=== PATIENT | male | born 1965 | race American Indian/Alaskan Native ===

== ENCOUNTER 2020-05-19 08:30 | Day surgery (SDC) | payer BC, OTHER ==
[~2020-05-19 08:30] MED LIST: SODIUM CHLORIDE 0.9% 1000 ML 1,000 ML IV SCH
--- NOTE | 2020-05-19 09:38 | Anesthesia Day of Surgery ---
Anesthesia Day of Surgery - Day of Surgery Patient Examined: Yes Patient H&P Reviewed: Yes Patient is NPO: Yes
--- NOTE | 2020-05-19 09:40 | Anesthesia Consultation ---
Anesthesia Consult and Med Hx Date of service: 05/19/20 - Airway Anesthetic Teeth Evaluation: Chipped ROM Head & Neck: Adequate Mental/Hyoid Distance: Adequate Mallampati Class: Class II Intubation Access Assessment: Good - Pre-Operative Health Status ASA Pre-Surgery Classification: ASA3 Proposed Anesthetic Plan: MAC - Pulmonary Hx Asthma: Yes Hx Sleep Apnea: Yes - Cardiovascular System Hx Hypertension: Yes - Endocrine Hx Renal Disease: No Hx Non-Insulin Dependent Diabetes: No - Other Systems Hx Obesity: Yes
[2020-05-19] MEDS ORDERED: propofoL 200 MG/20 ML VIAL IV ONE (11:21)
[2020-05-19] MEDS ORDERED: LIDOCAINE MPF (2%) 20 MG/1 ML VIAL 5 ML ONE (11:21)
--- NOTE | 2020-05-19 11:48 | Procedure Note ---
Date of procedure: 05/19/20 Pre-op diagnosis: Colon Polyp Screening Post-op diagnosis: other (No colon Polyps noted/ Moderate, Left Colon Diverticuli/ Minor,Internal Hemorrhoid) Procedure: Colonoscopy Anesthesia: MAC Surgeon: JUANCHO REED Estimated blood loss: none Pathology: none Condition: stable Disposition: same day (Encourage fiber intake and resume home medication and follow up in 1 to 2 weeks ([phone]).)
--- NOTE | 2020-05-19 11:53 | Operative Report ---
INDICATIONS: This is a 55-year-old gentleman who had a colonoscopy done as part of colon polyp screening. DESCRIPTION OF PROCEDURE: The procedure was done after getting informed consent with MAC anesthesia. Initial rectal exam was unremarkable. Instrument was passed through the rectum onto the cecum, which was identified by the ileocecal valve and the appendiceal orifice. Visualization was fair to good. It was slightly poor in the proximal colon, which was washed with copious amounts of water. No significant pathology was noted in the proximal colon, which included the cecum and ascending colon as well as the transverse colon. There was moderate diverticular disease noted in the left colon and the rectum showed some minor internal hemorrhoid on the retroverted view. ASSESSMENT: Colon polyp screening, no colon polyps noted. Moderate left colon diverticula. Minor internal hemorrhoids. The prep was fair to good. PLAN: To encourage the patient to take fiber supplements and resume home medication. Follow up in the office in 1-2 weeks' time. The procedure was done in the GI lab with assistance of the GI lab team, which included the GI nurse including the Chucky De Anda and with assistance of anesthesia. JOB# [id number] CAMELIA/INGRID
[2020-05-19 12:33] VITALS: BP 146/80
--- NOTE | 2020-05-19 15:35 | Post Anesthesia Evaluation ---
- Post Anesthesia Evaluation Patient Participated: Yes Airway Patent: Yes Stable Respiratory Function: Yes Nausea/Vomiting: No Temp > 96.8F: Yes Pain Manageable: Yes Adequeate Hydration: Yes Anesthesia Complications: No Block Receding Appropriately: Not Applicable Patient on Ventilator: No
== END 2020-05-19 08:31 | disposition home or self-care (01) ==
LOC: GIO 08:30
DX: Z12.11 Encounter for screening for malignant neoplasm of colon (principal); K57.30 Diverticulosis of large intestine without perforation or abscess without bleeding; J45.909 Unspecified asthma, uncomplicated; G47.30 Sleep apnea, unspecified; E66.9 Obesity, unspecified; Z68.41 Body mass index [BMI] 40.0-44.9, adult; Z79.899 Other long term (current) drug therapy; Z98.890 Other specified postprocedural states
CPT/HCPCS: 45378; J2704; J7030